=== PATIENT | female | born 1995 | race Caucasian/White ===

== ENCOUNTER 2018-12-24 21:55 | Emergency (ER) | payer BC, SELFPAY ==
--- OUTSIDE RECORDS SUMMARY | 2018-12-24 21:58 | XMS REPORT | Clinical Summary ---
:1995 Author Organization [facility] Address [address] [place] [address] Care Team Providers Name Role Phone Unavailable Primary Care Provider Unavailable Allergies No Known Allergies Medications Medication Sig Dispensed Refills Start Date End Date Status vitamin Take 1 tablet by 0 Active w/udifiex-gzgb-ghgrae mouth daily. ( PLUS) 27 mg iron- 1 mg Tab Active Problems Problem Noted Date Primigravida, antepartum 12/20/2017 Encounters Date Type Specialty Care Team Description 01/30/2018 Telephone Obstetrics and Franca Jeter RN Incoming Gynecology Call 01/18/2018 Routine Obstetrics and Jessica Pacheco [place]: 10w3d Richard Martins MD after 12/23/2017 Family History Medical History Relation Name Comments Hypertension Father Diabetes Paternal Grandfather Relation Name Status Comments Father Paternal Grandfather Social History Tobacco Use Types Packs/Day Years Used Date Never Smoker Smokeless Tobacco: Never Used Alcohol Use Drinks/Week oz/Week Comments No Sex Assigned at Date Recorded Not on file Job Start Date Occupation Industry Not on file Not on file Not on file Travel History Travel Start Travel End No recent travel history available. Last Filed Vital Signs Vital Sign Reading Time Taken Blood Pressure 122/70 01/18/2018 10:16 AM CDT Pulse - - Temperature - - Respiratory Rate - - Oxygen Saturation - - Inhaled Oxygen Concentration - - Weight 87.1 kg (192 lb) 01/18/2018 10:16 AM CDT Height - - Body Mass Index 34.01 01/18/2018 10:16 AM CDT Plan of Treatment Not on file Results Not on fileafter 12/23/2017 Insurance Payer Benefit Plan / Subscriber ID Type Phone Address Group BLUE CROSS/BLUE BCBS PPO POS EPO xxxxxxxxxxxx PPO [phone] [address] [place] [address]
--- OUTSIDE RECORDS SUMMARY | 2018-12-24 21:59 | XMS REPORT | Continuity of Care Document ---
:1995 Author Organization [facility] Care Team Providers Name Role Phone NOLOCAL, PRIMARY CARE DOC Primary Care Physician Unavailable Insurance Providers Payer Name Policy Number Subscriber Name Relationship [facility] [id number] MAVERICK KELLER Advance Directives Directive Response Recorded Date/Time Advance Directive? N 08/07/18 6:54pm Living Will? N 08/07/18 6:54pm Health Care Proxy? N 08/07/18 6:54pm Healthcare Power of Air Hammer Operator? N 08/07/18 6:54pm Is the patient an Organ Donor? N 08/07/18 6:54pm Chief Complaint and Reason for Visit Reason for Visit PASSING CLOTS S/P GIVING 08/04/NEAR SYNCOPE Problems Active Medical Problems Problem Onset Date Recorded Date Status Complicated urinary tract infection Unknown 07/08/16 Active Medications Current Home Medications Medication Dose Units Route Directions Days/Qty Instructions Start Date ACETAMINOPHEN 1-2 TAB By Mouth EVERY SIX HOURS 30 07/08/16 W/CODEINE #3 NEEDED as (TYLENOL/CODEINE #3 needed for PAIN TAB) 300 MG/30 MG TAB IBUPROFEN (MOTRIN 600 MG By Mouth EVERY EIGHT 20 07/08/16 600 MG TAB) 600 MG HOURS NEEDED TAB as needed for PAIN AND INFLAMMATION Ondansetron ODT 4 MG By Mouth EVERY SIX HOURS 12 07/08/16 (ZOFRAN 4 MG ODT) 4 NEEDED as MG TAB needed for NAUSEA SULFAMETHOXAZOLE 1 TAB By Mouth TWICE A DAY 10 Days 07/08/16 W/TRIMETHOPRI (0900; 2100) (SULFAMETHOXAZOLE/TM P DS 800 MG/160 MG TAB) 800 MG/160 MG TAB Social History Query Response Start Date Stop Date Smoking Status: Unknown Hospital Discharge Instructions No hospital discharge instructions. Plan of Care Discharge Date 08/07/18 Disposition HOME/SELF CARE Prescriptions See Medications Section Functional Status No functional status results. Allergies, Adverse Reactions, Alerts No known allergies. Immunizations No Known History of Immunizations. Vital Signs No Known Vital Signs Results. Results Laboratory Results Test Name Result Units Flags Reference Collection Result Comments Date/Time Date/Time White Blood 14.4 K/uL H 4.8-10.8 08/07/18 08/07/18 Count 7:13pm 7:37pm Red Blood 3.36 M/uL L 3.70-5.40 08/07/18 08/07/18 Count 7:13pm 7:37pm Hemoglobin 10.0 g/dL L 12.0-16.0 08/07/18 08/07/18 7:13pm 7:37pm Hematocrit 28.9 % L 37.0-47.0 08/07/18 08/07/18 7:13pm 7:37pm Mean 85.9 fl 80.0-100.0 08/07/18 08/07/18 Corpuscular 7:13pm 7:37pm Volume Mean 29.8 pg 27.0-31.0 08/07/18 08/07/18 Corpuscular 7:13pm 7:37pm Hemoglobin Mean 34.6 g/dL 32.0-36.0 08/07/18 08/07/18 Corpuscular 7:13pm 7:37pm Hgb Concent Diff Red Cell 15.6 % H 11.5-14.5 08/07/18 08/07/18 Distribution 7:13pm 7:37pm Width Platelet Count 296 K/uL 130-400 08/07/18 08/07/18 7:13pm 7:37pm Mean Platelet 8.1 fl 08/07/18 08/07/18 Volume 7:13pm 7:37pm Granulocytes 78.7 % H 50.0-75.0 08/07/18 08/07/18 (%) 7:13pm 7:37pm Lymphocytes % 12.8 % L 20.0-40.0 08/07/18 08/07/18 7:13pm 7:37pm Monocytes % 6.6 % 0.0-15.0 08/07/18 08/07/18 7:13pm 7:37pm Eosinophils % 1.7 % 0.0-10.0 08/07/18 08/07/18 7:13pm 7:37pm Basophils % 0.2 % 0.0-2.0 08/07/18 08/07/18 7:13pm 7:37pm Granulocytes # 11.3 K/uL H 1.8-6.4 08/07/18 08/07/18 7:13pm 7:37pm Lymphocytes # 1.8 K/uL 1.2-3.6 08/07/18 08/07/18 7:13pm 7:37pm Monocytes # 0.9 K/uL 0.3-0.9 08/07/18 08/07/18 7:13pm 7:37pm Eosinophils # 0.2 K/ul 0.0-0.5 08/07/18 08/07/18 7:13pm 7:37pm Basophils # 0.0 K/uL 0.0-0.2 08/07/18 08/07/18 7:13pm 7:37pm Manual NO 08/07/18 08/07/18 Differential 7:13pm 7:37pm Sodium Level 138 mmol/L 135-144 08/07/18 08/07/18 7:13pm 7:37pm Potassium 3.6 mmol/L 3.5-5.1 08/07/18 08/07/18 Level 7:13pm 7:37pm Chloride Level 108 mmol/L 101-111 08/07/18 08/07/18 7:13pm 7:37pm Carbon Dioxide 23 mmol/L 22-32 08/07/18 08/07/18 Level 7:13pm 7:37pm Anion Gap 10.6 mmol/L 10-20 08/07/18 08/07/18 7:13pm 7:37pm Glucose Level 118 mg/dL H 65-99 08/07/18 08/07/18 7:13pm 7:37pm Prediabetes 100 to 125 mg/dl Diabetes 126 mg/dl or higher Prediabetes refers to individuals with plasma glucose levels intermediate between those considered normal and those considered diabetic and is also referred to as impaired glucose tolerance (IGT) or impaired fasting glucose (IFG). Blood Urea 15 mg/dL 8-08/07/18 08/07/18 Nitrogen 7:13pm 7:44pm Creatinine 0.6 mg/dL 0.44-1.00 08/07/18 08/07/18 7:13pm 7:44pm EGFR Note 124.1 63.8-143.2 08/07/18 08/07/18 eGFR (Estimated Glomerular Filtration Rate) 7:13pm 7:44pm eGFR calculation value obtained using the [facility] Quadratic (MCQ) equation. The reportable reference range is recommended to be greater than 60 ml/min/1.73m. This is an estimation of the patient's GFR and clinical correlation is recommended. This eGFR calculation does not account for race. This result may differ from other equations available. Calcium Level 8.9 mg/dL 8.9-10.3 08/07/18 08/07/18 7:13pm 7:37pm Albumin 2.7 g/dL L 3.5-5.0 08/07/18 08/07/18 7:13pm 7:44pm Total 0.3 mg/dL 0.2-1.2 08/07/18 08/07/18 Bilirubin 7:13pm 7:44pm Alkaline 108 IU/L H 32-91 08/07/18 08/07/18 Phosphatase 7:13pm 7:44pm Total Protein 6.1 g/dL L 6.5-8.1 08/07/18 08/07/18 7:13pm 7:44pm Alanine 54 IU/L 7-55 08/07/18 08/07/18 Aminotransfera 7:13pm 7:44pm se (ALT/SGPT) Aspartate 49 IU/L H 15-41 08/07/18 08/07/18 Amino Transf 7:13pm 7:44pm (AST/SGOT) Globulin 3.4 g/dL 2.3-3.5 08/07/18 08/07/18 7:13pm 7:44pm Albumin/Globul 0.8 L 1.2-2.2 08/07/18 08/07/18 in Ratio 7:13pm 7:44pm Urine Color YELLOW YELLOW 06/07/18 06/07/18 10:00pm 10:16pm Urine CLEAR CLEAR 06/07/18 06/07/18 Appearance 10:00pm 10:16pm Urine Glucose NEGATIVE mg/dL NEGATIVE 06/07/18 06/07/18 10:00pm 10:16pm Urine NEGATIVE NEGATIVE 06/07/18 06/07/18 Bilirubin 10:00pm 10:16pm Urine Ketones NEGATIVE NEGATIVE 06/07/18 06/07/18 10:00pm 10:16pm Urine Specific 1.015 1.002-1.03 06/07/18 06/07/18 [place] 0 10:00pm 10:16pm Urine Blood NEGATIVE NEGATIVE 06/07/18 06/07/18 10:00pm 10:16pm Urine pH 6.5 4.5-8.0 06/07/18 06/07/18 10:00pm 10:16pm Urine Protein NEGATIVE mg/dL NEGATIVE 06/07/18 06/07/18 10:00pm 10:16pm Urine 0.2 E.U./dL 0.2 06/07/18 06/07/18 Urobilinogen 10:00pm 10:16pm Urine Nitrite NEGATIVE NEGATIVE 06/07/18 06/07/18 10:00pm 10:16pm Urine SMALL A NEGATIVE 06/07/18 06/07/18 Leukocyte 10:00pm 10:16pm Esterase Urine YES NO 06/07/18 06/07/18 Microscopic 10:00pm 10:16pm Indicated Urine RBC 0-2 /hpf 0-2 06/07/18 06/07/18 10:00pm 10:27pm Urine WBC 6-14 /hpf A 0-2 06/07/18 06/07/18 "Urine Culture 10:00pm 10:27pm test was reflexed and added to this specimen" Urine 6-14 /hpf A 0-2 06/07/18 06/07/18 Epithelial 10:00pm 10:27pm Cells Urine Bacteria 3+ /hpf A NEG 06/07/18 06/07/18 "Urine Culture 10:00pm 10:27pm test was reflexed and added to this specimen" Prothrombin 11.5 SECONDS 10.0-12.9 06/07/18 06/07/18 Time 7:30pm 8:06pm INR 1.0 0.91-1.15 06/07/18 06/07/18 International 7:30pm 8:06pm THE INR IS TO BE USED ONLY FOR MONITORING ORAL ANTICOAGULANT Normalized THERAPY. Ratio INDICATION INR VALUE 1. Prophylaxis of venous thrombosis 2.0-3.0 (high-risk surgery) Treatment of venous thrombosis Treatment of PE Prevention of systemic embolism Tissue heart valves AMI (to prevent systemic embolism) Valvular heart disease Atrial fibrillation Bileaflet mechanical valve in aortic position 2. Mechanical prosthetic heart valves (high risk) 2.5-3.5 Thrombosis and Antiphospholipid syndrome Prevention of recurrent DE Sixth ACCP Consensus Conference on Antithrombotic Therapy, Chest 2001; 119:Supplement 8-21. Activated 26.2 SECONDS 25.1-36.5 06/07/18 06/07/18 Partial 7:30pm 8:06pm Thromboplast Time D-Dimer 836 ng/mLFEU H 0-499 06/07/18 06/07/18 7:30pm 8:06pm The 100% NPV (Negative Predictive Value) for DVT/PE exclusion is <500 ng/mL FEU as suggested by the wood casket assembler and as approved by the FDA. Clinical correlation is needed. Creatine 33 IU/L L 38-234 06/07/18 06/07/18 Kinase 7:30pm 8:06pm Creatine 1.55 ng/ML 0.6-6.3 06/07/18 06/07/18 Kinase MB 7:30pm 8:06pm Troponin I < 0.01 ng/mL 0.00-0.03 06/07/18 06/07/18 7:30pm 8:06pm Troponin I-Interpretation Reference : <0.03 ng/mL NEGATIVE 0.04 - 0.49 ng/mL EQUIVOCAL =OR > 0.5 ng/mL CONSISTENT WITH ACUTE MYOCARDIAL INJURY 98% of confirmed AMI patients will have at least one value in a set or serial specimens >0.50 ng/ml. 99% of normals are between 0.0 - 0.10 ng/ml. Serial samples on a patient that are all <0.10 ng/ml effectively rules out AMI. Persistently increased troponin I values that are above the upper limit of normal but below the threshold for AMI indicate mycardial injury but not necessarily an ischemic mechanism of injury. Troponin Important Points 1. Troponin is specific for myocardial injury but not for AMI. Elevated troponin levels above the upper limit of normal but below the AMI cutoff may be present in cardiac injury other then AMI and represent some degree of risk. 2. Elevated troponin levels inconsistent with patient history or clinical condition should be considered a sign to investigate for other cardiac conditions. 3. Serial sampling is critical for accurate diagnosis. Myoglobin 9 ug/mL L 14.3-65.8 06/07/18 06/07/18 7:30pm 8:06pm Microbiology Results Procedure Source Result Collection Date/Time Result Date/Time Urine Culture Urine,Random Strep Agalactiae 06/07/18 10:27pm 06/12/18 6: 34am Group B Procedures Procedure Status Date Provider(s) CBCA W/PLT & AUTO DIFFERENTIAL Completed 06/07/18 IMMARAJ,PREMSWARUP COMPREHENSIVE METABOLIC PANEL Completed 06/07/18 IMMARAJ,PREMSWAR[facility] CARDIAC MARKERS PANEL (ER) Completed 06/07/18 IMMARAJ,PREMSWAR[facility] D- DIMER Completed 06/07/18 IMMARAJ,PREMSWAR[facility] ROUTINE URINALYSIS Completed 06/07/18 IMMARAJ,PREMSWAR[facility] PROTIME Completed 06/07/18 IMMARAJ,PREMSWARUP PTT Completed 06/07/18 IMMARAJ,PREMSWARUP URINE CULTURE Completed 06/07/18 IMMARAJ,PREMSWARUP CBCA W/PLT & AUTO DIFFERENTIAL Completed 08/07/18 [facility] COMPREHENSIVE METABOLIC PANEL Completed 08/07/18 ED[facility] LANG TYPE AND SCREEN Completed 08/07/18 ED[facility] LANG CHEST 1 VIEW (AP) Completed 06/07/18 IMMARAJ,PREMSWARUP Encounters Encounter Location Arrival/Admit Date Discharge/Depart Date Attending Provider Departed [place] 08/07/18 6:48pm 08/07/18 10:05pm BABITA GATES MD Emergency [facility] Departed [place] 06/07/18 7:13pm 06/07/18 10:22pm [facility]
--- OUTSIDE RECORDS SUMMARY | 2018-12-24 21:59 | XMS REPORT | Continuity of Care Document ---
:1995 Author Organization Interface Problems Problem Status Onset Classification Date Comments Source Date Reported Complicated Active Problem 08/08/2018 [place] urinary tract [facility] infection Medications Medication Details Route Status Patient Ordering Order Source Instructions Provider Date ACETAMINOPHEN EVERY SIX [facility] [place] W/CODEINE #3 HOURS 2015 [facility] (TYLENOL/CODEINE NEEDED as #3 TAB) 300 MG/30 needed for MG TAB PAIN IBUPROFEN (MOTRIN EVERY EIGHT [facility] [place] 600 MG TAB) 600 HOURS 2015 [facility] MG TAB NEEDED as needed for PAIN AND INFLAMMATION Ondansetron ODT EVERY SIX [facility] [place] (ZOFRAN 4 MG ODT) HOURS 2015 [facility] 4 MG TAB NEEDED as needed for NAUSEA SULFAMETHOXAZOLE TWICE A DAY [facility] [place] W/TRIMETHOPRI (0900; 2100) 2015 [facility] (SULFAMETHOXAZOLE /TMP DS 800 MG/160 MG TAB) 800 MG/160 MG TAB Allergies, Adverse Reactions, Alerts Substance Category Reaction Severity Reaction Status Date Comments Source type Reported Immunizations Immunization Date Given Site Status Last Comments Source Updated No vaccine completed [facility] Results Order Results Value Reference Date Interpretation Comments Source Name Range WBC # Bld Auto 14.4 4.8 - 10.8 2018 [facility] RBC # Bld Auto 3.36 3.70 - 5.40 2018 [facility] Hgb Bld-mCnc 10.0 12.0 - 16.0 2018 [facility] Hct VFr Bld 28.9 37.0 - 47.0 2018 [facility] MCV RBC 85.9 80.0 - 100.0 2018 [facility] MCH RBC Qn 29.8 27.0 - 31.0 Auto 2019 [facility] MCHC RBC 34.6 32.0 - 36.0 Auto-mCnc 2019 [facility] RDW RBC 15.6 11.5 - 14.5 Auto-Rto 2019 [facility] Platelet # Bld 296 130 - 400 Auto 2019 [facility] PMV Bld Auto 8.1 2018 [facility] Granulocytes/l 78.7 50.0 - 75.0 euk NFr Bld 2019 [facility] Auto Lymphocytes/le 12.8 20.0 - 40.0 uk NFr Bld 2019 [facility] Auto Monocytes/leuk 6.6 0.0 - 15.0 NFr Bld Auto 2019 [facility] Eosinophil/sahra 1.7 0.0 - 10.0 k NFr Bld Auto 2019 [facility] Basophils/leuk 0.2 0.0 - 2.0 NFr Bld 2019 [facility] Granulocytes # 11.3 1.8 - 6.4 Bld 2019 [facility] Lymphocytes # 1.8 1.2 - 3.6 Bld 2019 [facility] Monocytes # 0.9 0.3 - 0.9 Bld Auto 2019 [facility] Eosinophil # 0.2 0.0 - 0.5 Bld Auto 2019 [facility] Basophils # 0.0 0.0 - 0.2 Bld 2019 [facility] Manual NO Differential 2019 [facility] Sodium 138 135 - 144 SerPl-sCnc 2019 [facility] Potassium 3.6 3.5 - 5.1 SerPl-sCnc 2019 [facility] Chloride 108 101 - 111 SerPl-sCnc 2019 [facility] CO2 SerPl-sCnc 23 22 - 32 2018 [facility] Anion Gap 10.6 10 - 20 [place] SerPl-sCnc 2019 [facility] Glucose 118 65 - 99 SerPl-mCnc 2019 [facility] BUN SerPl-mCnc 15 8 - 26 2018 [facility] Creat 0.6 0.44 - 1.00 SerPl-mCnc 2019 [facility] GFR/BSA.pred 124.1 63.8 - 01/14/ [place] SerPl-ArVRat 143.2 2019 [facility] 8[facility]9 8.9 - [facility] 2.7 3.5 - [facility] Bilirub 0.3 0.2 - 1.2 [facility] ALP SerPl-cCnc 108 32 - 91 2019 [facility] Prot 6.1 6.5 - 8[facility] ALT SerPl-cCnc 54 7 - 55 2018 [facility] AST SerPl-cCnc 49 15 - 41 2018 [facility] Globulin Ser 3.4 2.3 - 3.5 [facility] Albumin/Glob 0.8 1.2 - 2.2 [facility] 2019 [facility] Urine Culture Organism: Strep 2018 [facility] Agalactiae Group B Color Ur YELLOW YELLOW 2018 [facility] Appearance Ur CLEAR CLEAR 2017 [facility] Glucose Ur NEGATIVE NEGATIVE Strip-nc 2018 [facility] Bilirub NEGATIVE NEGATIVE Ur-nc 2018 [facility] Ketones Ur NEGATIVE NEGATIVE Strip-nc 2018 [facility] Sp Gr Ur 1.015 1.002 - 1.030 2018 [facility] Blood Ur Ql NEGATIVE NEGATIVE Visual 2018 [facility] pH Ur Strip 6.5 4.5 - 8.0 2018 [facility] Prot Ur-mCnc NEGATIVE NEGATIVE 2017 [facility] Urobilinogen 0.2 0.2 Ur Strip-aCnc 2018 [facility] Nitrite Ur Ql NEGATIVE NEGATIVE Strip 2018 [facility] Leukocyte SMALL NEGATIVE esterase Ur Ql 2018 [facility] Strip Urine YES NO Microscopic 2018 [facility] Indicated RBC #/area 0-2 0 - 2 UrnS HPF 2018 [facility] WBC #/area 6-14 0 - 2 [place] UrnS HPF 2018 [facility] Epi Cells # Ur 6-14 0 - 2 [place] Manual 2018 [facility] Bacteria UrnS 3+ NEG [place] Ql Micro 2018 [facility] PT Bld 11.5 10.0 - 12.9 2017 [facility] INR PPP 1.0 0.91 - 1.15 2017 [facility] aPTT Bld 26.2 25.1 - 36.5 2017 [facility] D-Dimer 836 0 - 499 2017 [facility] CK SerPl-cCnc 33 38 - 234 2017 [facility] CK MB 1.55 0.6 - 6.3 [facility] 2017 [facility] Troponin I < 0.01 0.00 - 0.03 [facility] 2017 [facility] Myoglobin 9 14.3 - 65.8 [place] Bld[facility] 2017 [facility] Vital Signs Vital Sign Value Date Comments Source Encounters Location Location Encounter Encounter Reason Attending ADM DC Status Source Details Type Number For Provider Date Date Visit Departed [id number] [facility] 06/07 06/07 [facility] [facility] IMMARAJ /2017 e [facility] Departed [id number] BABITA GATES [facility]/07 [facility] Outpatient [id number] MALATHI 08/25 Active [facility] Moe Procedures Procedure Code Date Perfomer Comments Source CBCA W/PLT & AUTO 08/07/2018 [facility] COMPREHENSIVE 08/07/2018 [place] METABOLIC PANEL [facility] TYPE AND SCREEN 08/07/2018 [facility] CBCA W/PLT & AUTO 06/07/2018 [facility] COMPREHENSIVE 06/07/2018 [place] METABOLIC [facility] CARDIAC MARKERS 06/07/2018 [place] PANEL (ER) [facility] D- DIMER 06/07/2018 [facility] ROUTINE URINALYSIS 06/07/2018 [facility] PROTIME 06/07/2018 [facility] PTT 06/07/2018 [facility] URINE CULTURE 06/07/2018 [facility] CHEST 1 VIEW (AP) 06/07/2018 [facility]
--- OUTSIDE RECORDS SUMMARY | 2018-12-24 22:00 | XMS REPORT | Continuity of Care Document ---
:1995 Author Organization [facility] Care Team Providers Name Role Phone NOLOCAL, PRIMARY CARE DOC Primary Care Physician Unavailable Insurance Providers Payer Name Policy Number Subscriber Name Relationship [facility] [id number] MAVERICK KELLER Advance Directives Directive Response Recorded Date/Time Advance Directive? N 06/07/18 7:41pm Living Will? N 06/07/18 7:41pm Health Care Proxy? N 06/07/18 7:41pm Healthcare Power of Vest Finisher? N 06/07/18 7:41pm Is the patient an Organ Donor? N 06/07/18 7:41pm Chief Complaint and Reason for Visit Reason for Visit 30 WK OB CHEST PAIN/WEAK Problems Active Medical Problems Problem Onset Date [...] discharge instructions. Plan of Care Discharge Date 06/07/18 Disposition OTHER ACUTE CARE FACILITY Prescriptions See Medications Section Functional Status No functional status results. Allergies, Adverse Reactions, Alerts No known allergies. Immunizations No Known History of Immunizations. Vital Signs No Known Vital Signs Results. Results Laboratory Results Test Name Result Units Flags Reference Collection Result Comments Date/Time Date/Time Urine Color YELLOW YELLOW 06/07/18 06/07/18 10:00pm 10:16pm Urine CLEAR CLEAR 06/07/18 06/07/18 Appearance 10:00pm 10:16pm Urine Glucose NEGATIVE mg/dL NEGATIVE 06/07/18 06/07/18 10:00pm 10:16pm Urine NEGATIVE NEGATIVE 06/07/18 06/07/18 Bilirubin 10:00pm 10:16pm Urine Ketones NEGATIVE NEGATIVE 06/07/18 06/07/18 10:00pm 10:16pm Urine Specific 1.015 1.002-1.03 06/07/18 06/07/18 [place] 0 10:00pm 10:16pm Urine Blood NEGATIVE NEGATIVE [...] was reflexed and added to this specimen" White Blood 19.7 K/uL H 4.8-10.8 06/07/18 06/07/18 Count 7:30pm 7:52pm Red Blood 4.11 M/uL 3.70-5.40 06/07/18 06/07/18 Count 7:30pm 7:52pm Hemoglobin 12.0 g/dL 12.0-16.0 06/07/18 06/07/18 7:30pm 7:52pm Hematocrit 35.7 % L 37.0-47.0 06/07/18 06/07/18 7:30pm 7:52pm Mean 86.9 fl 80.0-100.0 06/07/18 06/07/18 Corpuscular 7:30pm 7:52pm Volume Mean 29.2 pg 27.0-31.0 06/07/18 06/07/18 Corpuscular 7:30pm 7:52pm Hemoglobin Mean 33.6 g/dL 32.0-36.0 06/07/18 06/07/18 Corpuscular 7:30pm 7:52pm Hgb Concent Diff Red Cell 14.1 % 11.5-14.5 06/07/18 06/07/18 Distribution 7:30pm 7:52pm Width Platelet Count 254 K/uL 130-400 06/07/18 06/07/18 7:30pm 7:52pm Mean Platelet 8.1 fl 7.4-10.4 06/07/18 06/07/18 Volume 7:30pm 7:52pm Granulocytes 81.3 % H 50.0-75.0 06/07/18 06/07/18 (%) 7:30pm 7:52pm Lymphocytes % 11.7 % L 20.0-40.0 06/07/18 06/07/18 7:30pm 7:52pm Monocytes % 6.3 % 0.0-15.0 06/07/18 06/07/18 7:30pm 7:52pm Eosinophils % 0.6 % 0.0-10.0 06/07/18 06/07/18 7:30pm 7:52pm Basophils % 0.1 % 0.0-2.0 06/07/18 06/07/18 7:30pm 7:52pm Granulocytes # 16.1 K/uL H 1.8-6.4 06/07/18 06/07/18 7:30pm 7:52pm Lymphocytes # 2.3 K/uL 1.2-3.6 06/07/18 06/07/18 7:30pm 7:52pm Monocytes # 1.2 K/uL H 0.3-0.9 06/07/18 06/07/18 7:30pm 7:52pm Eosinophils # 0.1 K/UL 0.0-0.5 06/07/18 06/07/18 7:30pm 7:52pm Basophils # 0.0 K/UL 0.0-0.2 06/07/18 06/07/18 7:30pm 7:52pm Manual NO 06/07/18 06/07/18 Differential 7:30pm 7:52pm Prothrombin 11.5 SECONDS 10.0-12.9 06/07/18 06/07/18 Time [...] Thrombosis and Antiphospholipid syndrome Prevention of recurrent PR Sixth ACCP Consensus Conference on Antithrombotic Therapy, Chest 2001; 119:Supplement 8-21. Activated 26.2 SECONDS 25.1-36.5 06/07/18 06/07/18 Partial 7:30pm 8:06pm Thromboplast Time D-Dimer 836 ng/mLFEU H 0-499 06/07/18 06/07/18 7:30pm 8:06pm The 100% NPV (Negative Predictive Value) for DVT/PE exclusion is <500 ng/mL FEU as suggested by the manager of quality and as approved by the FDA. Clinical correlation is needed. Sodium Level 134 mmol/L L 135-144 06/07/18 06/07/18 7:30pm 7:49pm Potassium 3.7 mmol/L 3.5-5.1 06/07/18 06/07/18 Level 7:30pm 7:49pm Chloride Level 103 mmol/L 101-111 06/07/18 06/07/18 7:30pm 7:49pm Carbon Dioxide 25 mmol/L 22-32 06/07/18 06/07/18 Level 7:30pm 7:49pm Anion Gap 9.7 mmol/L L 10-20 06/07/18 06/07/18 7:30pm 7:49pm Glucose Level 120 mg/dL H 65-99 06/07/18 06/07/18 7:30pm 7:49pm Prediabetes 100 to 125 mg/dl Diabetes 126 mg/dl or higher Prediabetes refers to individuals with plasma glucose levels intermediate between those considered normal and those considered diabetic and is also referred to as impaired glucose tolerance (IGT) or impaired fasting glucose (IFG). Blood Urea 17 mg/dL 8-06/07/18 06/07/18 Nitrogen 7:30pm 8:06pm Creatinine 0.4 mg/dL L 0.44-1.00 06/07/18 06/07/18 7:30pm 8:06pm Calcium Level 9.0 mg/dL 8.9-10.3 06/07/18 06/07/18 7:30pm 7:49pm Albumin 3.2 g/dL L 3.5-5.0 06/07/18 06/07/18 7:30pm 8:06pm Total 0.3 mg/dL 0.2-1.2 06/07/18 06/07/18 Bilirubin 7:30pm 8:06pm Alkaline 103 IU/L H 32-91 06/07/18 06/07/18 Phosphatase 7:30pm 8:06pm Total Protein 7.3 g/dL 6.5-8.1 06/07/18 06/07/18 7:30pm 8:06pm Alanine 20 IU/L 7-55 06/07/18 06/07/18 Aminotransfera 7:30pm 8:06pm se (ALT/SGPT) Aspartate 18 IU/L 15-41 06/07/18 06/07/18 Amino Transf 7:30pm 8:06pm (AST/SGOT) Globulin 4.1 g/dL H 2.3-3.5 06/07/18 06/07/18 7:30pm 8:06pm Albumin/Globul 0.8 L 1.2-2.2 06/07/18 06/07/18 in Ratio 7:30pm 8:06pm Creatine 33 IU/L L 38-234 06/07/18 06/07/18 [...] ug/mL L 14.3-65.8 06/07/18 06/07/18 7:30pm 8:06pm Procedures Procedure Status Date Provider(s) CBCA W/PLT & AUTO DIFFERENTIAL Completed 06/07/18 IMMARAJ,PREMSWARUP COMPREHENSIVE METABOLIC PANEL Completed 06/07/18 IMMARAJ,PREMSWARUP CARDIAC MARKERS PANEL (ER) Completed 06/07/18 IMMARAJ,PREMSWARUP D- DIMER Completed 06/07/18 IMMARAJ,PREMSWARUP ROUTINE URINALYSIS Completed 06/07/18 IMMARAJ,PREMSWARUP PROTIME Completed 06/07/18 IMMARAJ,PREMSWARUP PTT Completed 06/07/18 IMMARAJ,PREMSWARUP URINE CULTURE Active 06/07/18 IMMARAJ,PREMSWARUP CHEST 1 VIEW (AP) Completed 06/07/18 IMMARAJ,PREMSWARUP Encounters Encounter Location Arrival/Admit Date Discharge/Depart Date Attending Provider Departed [place] 06/07/18 7:13pm 06/07/18 10:22pm IMMARA, Emergency [facility]
--- OUTSIDE RECORDS SUMMARY | 2018-12-24 22:00 | XMS REPORT ---
:1995 [facility] Address [address] [place] [address] Care Team Providers Name Role Phone Unavailable Unavailable Unavailable Payers Payer Name Policy Type Policy Number Effective Date Expiration Date Problems This patient has no known problems. Allergies, Adverse Reactions, Alerts Allergy Allergy Status Severity Reaction(s) Onset Inactive Treating Comments Name Type Date Date Clinician No Known DA Active U 2018-07 Allergies -11 00:00:0 0 No Known DA Active U 2018-05 Allergies -14 00:00:0 0 Medications This patient has no known medications. Results Test Description Test Time Test Comments Text Results Atomic Results Result Comments COMPREHENSVE DRUG SCRN MODIFD 2018-10-12 11:05:00 Test Item Value Reference Range Comments PHENYTOIN SCREEN (test None Detected 10.0-20.0 code=PHENSQ) ug/mL : Therapeutic 6.0 - 14.0 Detection Limit=0.6 <0.6 Indicates None Detected ACETAMINOPHEN (test None Detected 10-30 code=ACETSQ) ug/mL Detection Limit=5 AMITRIPTYLINE (test None Detected Not Estab. This test was developed and its code=TAMARA) ng/mL performance characteristicsdetermined by [facility]. It has not been cleared orapproved by the Food and Drug Administration. DIAZEPAM (test None Detected 0.1-0.9 code=DIAZT) ug/mL Therapeutic: Chlordiazepoxide < 1.0 Norchlordiazepoxide < 0.7 Demoxepam < 0.6 Nordiazepam < 1.5 Diazepam < 1.0 Toxic: (Total, Parent+Met) > 5.0 NORDIAZEPAM (test None Detected 0.1-1.4 code=NORDIAZ) ug/mL DOXEPIN (test code=DOXT) None Detected Not Estab. ng/mL IMIPRAMINE (test None Detected Not Estab. code=IMIP) ng/mL DESIPRAMINE (test None Detected Not Estab. code=DESR) ng/mL NORTRIPTYLINE (test None Detected 50-150 code=NORT) ng/mL NORDOXEPIN (test None Detected Not Estab. Performed At: [facility] code=LEDA) ng/mL [id number] [place], [place] [id number] [place]kee[place] MD Ph:[phone] PENTOBARBITAL (NEMBUTAL) None Detected 1-5 (test code=PENTO) ug/mL Detection Limit=1 SALICYLATE (test None Detected 30-250 code=SALSQ) ug/mL Detection Limit=5This test was developed and its performance characteristicsdetermined by [employer]. It has not been cleared orapproved by the Food and Drug Administration. ISOPROPYL ALCOHOL BLOOD Negative % 0.000-0.010 (test code=ALCI) Detection Limit=0.010 METHYL ALCOHOL BLOOD Negative % 0.000-0.010 (test code=ALCM) Detection Limit=0.010 ALCOHOL ETHYL BLOOD Negative % 0.000-0.010 (test code=ALCETH) Detection Limit=0.010 BUTALBITAL (test None Detected 1-10 code=BUTALB) ug/mL Detection Limit=1 PHENOBARBITAL (test None Detected 15-40 code=PHENOB) ug/mL Detection Limit=1 CHLORDIAZEPOXIDE (test None Detected 0.1-0.9 code=CHLORD) ug/mL CHLORDIAZEPOXIDE COMMENT None Detected 0.1-0.6 (test code=CHLORCOM) ug/mL ACETONE QUANT (test Negative % 0.000-0.010 code=ACETN) Detection Limit=0.010 - CT ANGIO [id number] 00:21:00 Patient Name: BIBI KELLER Unit No: [id number] EXAMS: CPT CODE: [id number] CT [place] CHEST [address]221 Examination: CTA chest, PE protocol Indication: Rule out PE elevates definite Comparison: None Location: P16 Technique: Multiple contiguous axial 1.25 mm images were obtained through the lung after administration of IV contrast. Coronal and sagittal maximum intensity projection (MIPs) images were generated. One or more of the following dose reduction techniques were used: Automated exposure control, adjustment of the mA and/or kV according to patient size , and/or utilization of iterative reconstruction technique. Findings: Adequate contrast bolus. No evidence of acute pulmonary embolism down to the level of the proximal segmental pulmonary arteries. These findings were confirmed on MPR and MIP images. No underlying lung parenchymal abnormality. No pleural effusion of pleural thickening.There are no enlarged mediastinal, hilar , supraclavicular or axillary lymph nodes by CT criteria. Heart size is normal. There is no pericardial effusion or thickening. The aorta is normal in caliber. Although the evaluation of the aortic root is limited in the absence of gating, the remainder of the aorta remains unremarkable with the exception of aortic calcifications. Limited early arterial phase evaluation of the upper abdomen is unremarkable. No suspicious or destructive osseous lesions. Impression : No evidence of acute pulmonary embolism to the level of the proximal segmental pulmonary arteries [facility] NAME: BIBI KELLER [address] [place] [address] Blvd PHYS: Paulino Ruano MD [place], [place] [address] : 1995 AGE: 22 SEX: F LOC: RADHA PHONE #: [phone] EXAM DATE: STATUS: REG ER FAX #: [phone] RAD #: D/C DT PAGE 1 Signed Report (CONTINUED) Patient Name: BIBI KELLER Unit No: [id number] EXAMS: CPT CODE: [id number] CT ANGIO CHEST [address] <Continued> at 0021 Reported and signed by: Kim Armendariz M.D. CC: Paulino Perry MD Dictated Date/Time: 08/25/2018 (0021) Technologist: Leila Finley - Violeta CTDI: 10.59 DLP: 388.55 Trnscrpt: 08/25/2018 ( 0021) [email or web address] [facility] [place] NAME : [address] PHYS: [place] [address] : 1995 AGE: 22 SEX: F LOC: [facility] PHONE #: [phone] EXAM DATE: STATUS: REG ER FAX #: [phone] RAD #: D/ C DT PAGE 2 Signed Report Patient Name: BIBI KELLER Unit No: [id number] EXAMS: CPT CODE: [id number] CT ANGIO [id number] <Continued> Orig Print D/T: S: 08/25/2018 (0024) RD [place] NAME: KRISHNA [address] PHYS: [place] [address] : 1995 AGE : 22 SEX: F LOC: B.ERS PHONE #: [phone] EXAM DATE: 08/24/2018 STATUS: REG ER FAX #: [phone] RAD #: D/C DT PAGE3 Signed ReportURINALYSIS [id number] 00:15:00 Test Item Value Reference Range Comments UA COLOR (test code=COLU) YELLOW DESCRIPT YELLOW UA APPEARANCE (test code=APPU) CLEAR DESCRIPT CLEAR UA GLUCOSE DIPSTICK (test code=DGLUU) NEGATIVE (0) mg/dL (NEG) 0 UA BILIRUBIN DIPSTICK (test code=BILU) NEGATIVE (0) mg/dL (NEG) 0 UA KETONE DIPSTICK (test code=KETU) 0 (NEG) mg/dL (NEG) 0 UA SPECIFIC GRAVITY (test code=SGU) 1.017 SG 1.001-1.035 UA BLOOD DIPSTICK (test code=BART) 3+ mg/DL (NEG) 0 UA PH DIPSTICK (test code=SUHA) 5.0 pH UNITS 4.6-8.0 UA PROTEIN DIPSTICK (test code=PROU) NEGATIVE (0) mg/dL <30 (1+) UA UROBILINIOGEN DIPSTICK (test NORMAL (0) mg/Dl <2.0 (1+) code=URO) UA NITRITE DIPSTICK (test code=JESÚS) NEGATIVE (0) SCREEN NEG UA LEUKOCYTE ESTERASE DIPSTICK (test 75 (1+) Leuk/mcL (NEG) 0 code=LEUU) UA WBC (test code=WBCU) 10-20 #WBC/HPF 0-3 UA RBC (test code=RBCU) >100 #RBC/HPF 0-3 UA SQUAMOUS CELLS (test code=SQU) RARE >0 /HPF NONE-SQepi UA MUCUS (test code=MUCU) RARE /LPF NONE DRUGS OF ABUSE SCREEN [id number] 00:15:00 Test Item Value Reference Range Comments URN COCAINE (test NONE DETECTED <300 NG/ML code=COCAURN) (NEG) SCcutoff URN CANNABINOIDS (test NONE DETECTED <50 NG/ML code=CANNABURN) (NEG) SCcutoff URN AMPHETAMINE (test NONE DETECTED <1000 NG/ML code=AMPHETURN) (NEG) SCcutoff URN BARBITURATE (test NONE DETECTED <200 NG/ML code=BARBITURN) (NEG) SCcutoff URN BENZODIAZEPINE (test NONE DETECTED <200 NG/ML code=BENZOURN) (NEG) SCcutoff URN OPIATES (test NONE DETECTED <300 NG/ML code=OPIATURN) (NEG) SCcutoff URN PHENCYCLIDINE (PCP) NONE DETECTED <25 NG/ML ------ For all drug screen (test code=PHENCURN) (NEG) SCcutoff analytes ------The screen method provides only a preliminary analyticaltest result. A more specific alternate chemical method mustbe used in order to obtain a confirmed analytical result.Gas chromatography/mass spectrometry (GC/MS) is thepreferred confirmatory method. Other chemical confirmationmethods are available. Clinical consideration andprofessional judgement should be applied to any drug ofabuse test result, particularly when preliminary positiveresults are used. URINALYSIS [id number] 00:06:00 Test Item Value Reference Range Comments UA COLOR (test code=COLU) YELLOW DESCRIPT YELLOW UA APPEARANCE (test code=APPU) CLEAR DESCRIPT CLEAR UA GLUCOSE DIPSTICK (test code=DGLUU) NEGATIVE (0) mg/dL (NEG) 0 UA BILIRUBIN DIPSTICK (test code=BILU) NEGATIVE (0) mg/dL (NEG) 0 UA KETONE DIPSTICK (test code=KETU) 0 (NEG) mg/dL (NEG) 0 UA SPECIFIC GRAVITY (test code=SGU) 1.017 SG 1.001-1.035 UA BLOOD DIPSTICK (test code=BART) 3+ mg/DL (NEG) 0 UA PH DIPSTICK (test code=SUHA) 5.0 pH UNITS 4.6-8.0 UA PROTEIN DIPSTICK (test code=PROU) NEGATIVE (0) mg/dL <30 (1+) UA UROBILINIOGEN DIPSTICK (test NORMAL (0) mg/Dl <2.0 (1+) code=URO) UA NITRITE DIPSTICK (test code=JESÚS) NEGATIVE (0) SCREEN NEG UA LEUKOCYTE ESTERASE DIPSTICK (test 75 (1+) Leuk/mcL (NEG) 0 code=LEUU) UA WBC (test code=WBCU) 10-20 #WBC/HPF 0-3 UA RBC (test code=RBCU) >100 #RBC/HPF 0-3 UA SQUAMOUS CELLS (test code=SQU) RARE >0 /HPF NONE-SQepi UA MUCUS (test code=MUCU) RARE /LPF NONE DRUGS OF ABUSE SCREEN [id number] 00:06:00 Test Item Value Reference Range Comments URN COCAINE (test code=COCAURN) SCcutoff <300 NG/ML URN CANNABINOIDS (test code=CANNABURN) SCcutoff <50 NG/ML URN AMPHETAMINE (test code=AMPHETURN) SCcutoff <1000 NG/ML URN BARBITURATE (test code=BARBITURN) SCcutoff <200 NG/ML URN BENZODIAZEPINE (test code=BENZOURN) SCcutoff <200 NG/ML URN OPIATES (test code=OPIATURN) SCcutoff <300 NG/ML URN PHENCYCLIDINE (PCP) (test code=PHENCURN) SCcutoff <25 NG/ML [id number] 23:52:00 Test Item Value Reference Range Comments SALICYLATE (test code=FRIDA) < 1.7 MG/DL 2.8-20.0 THER RESULT <2.8 IS CONSIDERED NEGATIVE FOR SALICYLATE. HCG [id number] 23:51:00 Test Item Value Reference Range Comments HCG SERUM (test code=HCG) <1 mi-IU/ML 0-3 INTERPRET B-HCG LEVELS LESS THAN OR EQUAL TO 3 MIU/ML NEG [id number] 23:51:00 Test Item Value Reference Range Comments ACETAMINOPHEN (test code=ACET) <2.0 mcG/ML 10.0-30.0 [id number] 23:51:00 Test Item Value Reference Range Comments ALCOHOL (test code=ALC) < 3 MG/DL 0-10 MEDICAL ALCOHOL RESULTS. SITE WAS PREPPED WITH BETADINE. <10 MG/DL ARE CONSIDERED NEGATIVE. >400 MG/DL MAY BE FATAL.RESULTS FOR MEDICAL USE ONLY. NOT TO BE USED FOR FORENSIC PURPOSES. HCG [id number] 23:48:00 Test Item Value Reference Range Comments HCG SERUM (test code=HCG) mi-IU/ML 0-3 [id number] 23:48:00 Test Item Value Reference Range Comments ACETAMINOPHEN (test code=ACET) <2.0 mcG/ML 10.0-30.0 [id number] 23:48:00 Test Item Value Reference Range Comments ALCOHOL (test code=ALC) < 3 MG/DL 0-10 MEDICAL ALCOHOL RESULTS. SITE WAS PREPPED WITH BETADINE. <10 MG/DL ARE CONSIDERED NEGATIVE. >400 MG/DL MAY BE FATAL.RESULTS FOR MEDICAL USE ONLY. NOT TO BE USED FOR FORENSIC PURPOSES. COMPREHENSIVE METABOLIC [id number] 23:39:00 Test Item Value Reference Range Comments SODIUM (test code=NA) 141.0 mmol/L 133-144 POTASSIUM (test code=K) 3.8 mmol/L 3.5-5.1 CHLORIDE (test code=CL) 110 mmol/L 95-105 CARBON DIOXIDE (test 23 mmol/L 21-32 code=CO2) ANION GAP (test code=GAP) 8.0 GAP calc 4.0-15.0 GLUCOSE (test code=GLU) 105 MG/DL 70-110 BLOOD UREA NITROGEN (test 20 MG/DL 7-18 code=BUN) GLOMERULAR FILTRATION 82 estGFR >60 The estimated glomerular RATE (test code=GFR) filtration rate is computed usingpatient race, age, sex, and serum creatinine. If any of theneeded data elements are missing the Laboratory can notcompute an estimation of the glomerular filtration rate.The GFR value units=ml/min/1.73 meter squared. EstimatedGFR values above 60 should be interpreted as >60, not anexact number.--- DRUG DOSAGE ALERT --- Drug dosage adjustments utilize different calculationparameters. CREATININE (test 0.88 MG/DL 0.55-1.30 Results may be depressed code=CREAT) if patient is takingN-Acetylcysteine (NAC) and Metamizole (Dipyrone). TOTAL PROTEIN (test 7.5 G/DL 6.4-8.2 code=PROT) ALBUMIN (test code=ALB) 3.2 G/DL 3.4-5.0 ALBUMIN/GLOBULIN RATIO 0.7 RATIO 1.2-2.2 (test code=A/G) CALCIUM (test code=CA) 8.8 MG/DL 8.5-10.1 BILIRUBIN TOTAL (test 0.15 MG/DL 0.00-1.00 code=BILT) BILIRUBIN DIRECT (test < 0.10 MG/DL 0.00-0.30 code=BILD) BILIRUBIN INDIRECT (test CALC OLIVER MG/DL 0.2-1.3 code=BILIND) SGOT/AST (test code=AST) 11 Unit/L 15-37 SGPT/ALT (test code=ALT) 25 Unit/L 12-78 ALKALINE PHOSPHATASE 123 Unit/L 45-117 TOTAL (test code=ALKP) INDEX HEMOLYSIS (test 1 NORMAL <10 MG 1 NORMAL code=HEMINDEX) Index/DL INDEX ICTERIC (test 1 NORMAL <2 MG 1 NORMAL code=ICTINDEX) Index/DL INDEX LIPEMIA (test 1 NORMAL <50 MG 1 NORMAL code=LIPINDEX) Index/DL [id number] 23:39:00 Test Item Value Reference Range Comments TROPONIN-I (test < 0.015 NG/ML 0.000-0.045 An elevated troponin value alone is code=TROPI) not sufficient todiagnose a myocardial infarction. Rather, the patient'sclinical presentation (history, physical exam) and ECGshould be used in conjunction with troponin in thediagnostic evaluation of suspected myocardial infarction. Aserial sampling protocol is recommended to facilitate theidentification of temporal changes in troponin levelscharacteristic of [place]. COMPREHENSIVE METABOLIC [id number] 23:36:00 Test Item Value Reference Range Comments SODIUM (test code=NA) 141.0 mmol/L 133-144 POTASSIUM (test code=K) 3.8 mmol/L 3.5-5.1 CHLORIDE (test code=CL) 110 mmol/L 95-105 CARBON DIOXIDE (test code=CO2) 23 mmol/L 21-32 ANION GAP (test code=GAP) 8.0 GAP calc 4.0-15.0 GLUCOSE (test code=GLU) 105 MG/DL 70-110 BLOOD UREA NITROGEN (test code=BUN) 20 MG/DL 7-18 CREATININE (test code=CREAT) MG/DL 0.55-1.30 TOTAL PROTEIN (test code=PROT) G/DL 6.4-8.2 ALBUMIN (test code=ALB) 3.2 G/DL 3.4-5.0 ALBUMIN/GLOBULIN RATIO (test RATIO 1.2-2.2 code=A/G) CALCIUM (test code=CA) 8.8 MG/DL 8.5-10.1 BILIRUBIN TOTAL (test code=BILT) MG/DL 0.00-1.00 BILIRUBIN DIRECT (test code=BILD) MG/DL 0.00-0.30 BILIRUBIN INDIRECT (test MG/DL 0.2-1.3 code=BILIND) SGOT/AST (test code=AST) Unit/L 15-37 SGPT/ALT (test code=ALT) Unit/L 12-78 ALKALINE PHOSPHATASE TOTAL (test Unit/L 45-117 code=ALKP) INDEX HEMOLYSIS (test 1 NORMAL <10 MG Index/DL 1 NORMAL code=HEMINDEX) INDEX ICTERIC (test code=ICTINDEX) 1 NORMAL <2 MG Index/DL 1 NORMAL INDEX LIPEMIA (test code=LIPINDEX) 1 NORMAL <50 MG Index/DL 1 NORMAL [id number] 23:36:00 Test Item Value Reference Range Comments TROPONIN-I (test code=TROPI) NG/ML 0.000-0.045 - XR CHEST 1 [id number] 23:36:00 FAX: Paulino Mccartney MD [phone] [place]: E St: PRE Patient Name: BIBI KELLER Unit No: [id number] EXAMS: CPT CODE : [id number] XR CHEST 1 V 92420 AFTER HOURS SERVICE ON: 08/24/2018 11:34 PM AP Portable Chest Location Code M12 HISTORY: chestpain r/o pneumothorax FINDINGS: There are no infiltrates. There are no pleural effusions. There is no pneumothorax. Cardiac silhouette and mediastinum appear within normal limits. IMPRESSION: No active intrathoracic findings. at 2336 Reported and signed by: Ximena Vick M.D. CC: Paulino Perry MD Dictated Date/Time: 08/24/2018 (9649)Technologist: Sveta Butler - Agency; [facility] Transcribed Date/Time: 08/24/2018 (8976) By: [email or web address] Orig Print D/T: S: 08/24/2018 (2860) [facility] [place] NAME: BIBI KELLER [address] [place] [address] PHYS: Paulino Ruano MD, [place] [address] : 1995 AGE: 22 SEX: F LOC: [place].ERSPHONE #: [phone] EXAM DATE: 08/24/2018 STATUS: PRE ER FAX #: [phone] RAD NO: DC Dt: PAGE 1 Signed [id number] 23:25:00 Test Item Value Reference Range Comments D-DIMER (test 598 FEUng/mL 0-500 THE CUT-OFF VALUE FOR EXCLUSION code=DDIMER) OF FTW=484 FEU ng/mLNOTE: This method must be used with additional tests in theevaluation of VTE and should not be used to exclude VTE withpretest probability alone. CBC W/AUTO [id number] 23:16:00 Test Item Value Reference Range Comments WHITE BLOOD CELL (test code=WBC) 12.3 K/mm3 4.1-12.1 RED BLOOD CELL (test code=RBC) 4.09 M/mm3 3.8-5.5 HEMOGLOBIN (test code=HGB) 11.5 G/DL 10.6-15.8 HEMATOCRIT (test code=HCT) 37.3 % 31.8-47.4 MEAN CELL VOLUME (test code=MCV) 91.2 fL 80.1-101.1 MEAN CELL HGB (test code=MCH) 28.1 pg 25.3-35.3 MEAN CELL HGB CONCETRATION (test code=MCHC) 30.8 G/DL 32.7-35.1 RED CELL DISTRIBUTION WIDTH (test code=RDW) 14.8 % 12.2-16.4 RED CELL DISTRIBUTION WIDTH (test code=RDW-SD) 49.3 fL 36.4-46.3 PLATELET COUNT (test code=PLT) 394 K/mm3 155-337 MEAN PLATELET VOLUME (test code=MPV) 9.8 fL 6.8-11.2 GRANULOCYTE % (test code=GR%) 62.7 % 37.8-82.6 IMMATURE GRANULOCYTE % (test code=IG%) 0.9 % 0.0-2.0 LYMPHOCYTE % (test code=LY%) 27.3 % 14.1-45.4 MONOCYTE % (test code=MO%) 7.0 % 2.5-11.7 EOSINOPHIL % (test code=EO%) 1.7 % 0.0-6.2 BASOPHIL % (test code=BA%) 0.4 % 0.0-2.1 NUCLEATED RBC % (test code=NRBC%) 0.0 /100WBC% 0.0-1.0 GRANULOCYTE # (test code=GR#) 7.68 k/mm3 2.0-13.7 IMMATURE GRANULOCYTE # (test code=IG#) 0.11 K/mm3 0.00-0.03 LYMPHOCYTE # (test code=LY#) 3.35 K/mm3 0.6-3.8 MONOCYTE # (test code=MO#) 0.86 K/mm3 0.11-0.59 EOSINOPHIL # (test code=EO#) 0.21 K/mm3 0.0-0.4 BASOPHIL # (test code=BA#) 0.05 K/mm3 0.0-0.1 NUCLEATED RBC # (test code=NRBC#) 0.00 K/mm3 0.0-0.05 [id number] 14:30:00 Test Item Value Reference Range Comments PHENYLKETONURIA (test SEE RPT SCREEN STATE RPT RESULT NORMAL-RANGE code=PKU) TEST/CONDITION ( SCREENING)------ -----N NORMAL Amino Acid DisordersN NORMAL Fatty Acid DisordersN NORMAL Organic Acid DisordersN NORMAL GalactosemiaN NORMAL Biotinidase DeficiencyN NORMAL Endocrine Disorders (Hypothyroid)N NORMAL CAH (Congenital Adrenal Hyperplasia)N NORMAL HemoglobinopathiesN NORMAL Cystic FibrosisN NORMAL SCID N/NORM=Normal ABN=Abnormal-does not compare with expected result UNSAT=Unsatisfactory * Any unsatisfactory test result indicates a need for repeat testing. Note:Transfusion may alter NBS results. See [facility] Report for detailed ABN or UNSAT results.--- [facility] Screening (NBS) Result Reporting ---The screen identifies newborns at increased risk forspecified disorders. The reference value for all screeneddisorders is Normal . Analyte results are only listed forabnormal disorder screening results. The recommendedcollection time period and the testing methodologies havebeen designed to minimize the number of false negative andfalse positive results in newborns and young infants. Whenthe screen specimen is collected before 24 hours ofage or on older children, the test may not identify some ofthese conditions. If there is a clinical concern, diagnostictesting should be initiated. Specimens that are unacceptablefor testing are reported as Unsatisfactory. Is this a LINE draw? NIs BABY'S MEDREC# on the CARD? YESAcknowledge, Was parent given NBS Specimen Retention Disclosure? YES
--- OUTSIDE RECORDS SUMMARY | 2018-12-24 22:01 | XMS REPORT | Continuity of Care Document ---
:1995 Author Organization [facility] Care Team Providers Name Role Phone SILVIO CAZARES Primary Care Physician Unavailable Insurance Providers Payer Name Policy Number Subscriber Name Relationship [facility] [id number] MAVERICK KELLER Advance Directives Directive Response Recorded Date/Time Advance Directive? N 11/27/18 7:19pm Living Will? N 11/27/18 7:19pm Health Care Proxy? N 11/27/18 7:19pm Healthcare Power of Server Service Assistant? N 11/27/18 7:19pm Is the patient an Organ Donor? N 11/27/18 7:19pm Chief Complaint and Reason for Visit Reason for Visit CHEST PAIN/LEFT ARM NUMBNESS Problems Active Medical Problems Problem Onset Date [...] discharge instructions. Plan of Care Discharge Date 11/27/18 Disposition HOME/SELF CARE Prescriptions See Medications Section Functional Status No functional status results. Allergies, Adverse Reactions, Alerts No known allergies. Immunizations No Known History of Immunizations. Vital Signs No Known Vital Signs Results. Results Laboratory Results Test Name Result Units Flags Reference Collection Result Comments Date/Time Date/Time Urine NEGATIVE NEGATIVE 11/27/18 11/27/18 Cannabinoids 8:21pm 8:48pm Screen Phencyclidine NEGATIVE NEGATIVE 11/27/18 11/27/18 (PCP) Screen 8:21pm 8:48pm Cocaine Screen NEGATIVE NEGATIVE 11/27/18 11/27/18 8:21pm 8:48pm Urine NEGATIVE NEGATIVE 11/27/18 11/27/18 Methamphetamines 8:21pm 8:48pm Screen Opiates Screen NEGATIVE NEGATIVE 11/27/18 11/27/18 8:21pm 8:48pm Urine NEGATIVE NEGATIVE 11/27/18 11/27/18 Amphetamines 8:21pm 8:48pm Screen Benzodiazepines NEGATIVE NEGATIVE 11/27/18 11/27/18 Screen 8:21pm 8:48pm Tricyclic NEGATIVE NEGATIVE 11/27/18 11/27/18 Antidepressants 8:21pm 8:48pm Screen Methadone Screen NEGATIVE NEGATIVE 11/27/18 11/27/18 8:21pm 8:48pm Urine NEGATIVE NEGATIVE 11/27/18 11/27/18 Barbiturates 8:21pm 8:48pm Screen Oxycodone Screen NEGATIVE NEGATIVE 11/27/18 11/27/18 8:21pm 8:48pm Propoxyphene NEGATIVE NEGATIVE 11/27/18 11/27/18 Screen 8:21pm 8:48pm Urine NEGATIVE NEGATIVE 11/27/18 11/27/18 Buprenorphine 8:21pm 8:48pm CUT OFF CONCENTRATIONS: Screen AMPHETAMINE 500 ng/ml BARBITURATES 200 ng/ml BENZODIAZEPINES 150 ng/ml BUPRENORPHINE 10 ng/ml COCAINE 150 ng/ml METHAMPHETAMINE 500 ng/ml METHADONE 200 ng/ml OPIATES 100 ng/ml OXYCODONE 100 ng/ml PHENCYCLIDINE 25 ng/ml PROPOXYPHENE 300 ng/ml CANNIBINOIDS 50 ng/ml TRICYCLIC ANTIDEPRESSANTS 300 ng/ml ATTENTION: It is important to remember that the [employer]ottay[employer]X device, like other instant drug testing immunoassays are screening tests and they give a preliminary result. A presumptive positive result(s) should be explored for possible alternative explanations- i.e. known related/unrelated cross reactive compounds, etc. Alternative, more specific methods like GC/MS OR LC/MS should be utilized to obtain a definitive confirmed quantitative result. A presumptive positive result for any drug does not indicate the level of intoxication, administration route or concentration of that drug in the urine specimen. A negative result may not necessarily indicate drug-free urine. Negative results can be obtained when drug is present but below the cut-off level of the test. Urine Color STRAW YELLOW 11/27/18 11/27/18 8:21pm 8:42pm Urine Appearance CLEAR CLEAR 11/27/18 11/27/18 8:21pm 8:42pm Urine Glucose NEGATIVE mg/dL NEGATIVE 11/27/18 11/27/18 8:21pm 8:42pm Urine Bilirubin NEGATIVE NEGATIVE 11/27/18 11/27/18 8:21pm 8:42pm Urine Ketones NEGATIVE NEGATIVE 11/27/18 11/27/18 8:21pm 8:42pm Urine Specific <=1.005 1.002-1.03 11/27/18 11/27/18 [place] 0 8:21pm 8:42pm Urine Blood TRACE A NEGATIVE 11/27/18 11/27/18 8:21pm 8:42pm Urine pH 6.0 4.5-8.0 11/27/18 11/27/18 8:21pm 8:42pm Urine Protein NEGATIVE mg/dL NEGATIVE 11/27/18 11/27/18 8:21pm 8:42pm Urine 0.2 E.U./d 0.2 11/27/18 11/27/18 Urobilinogen L 8:21pm 8:42pm Urine Nitrite NEGATIVE NEGATIVE 11/27/18 11/27/18 8:21pm 8:42pm Urine Leukocyte TRACE A NEGATIVE 11/27/18 11/27/18 Esterase 8:21pm 8:42pm Urine Microscopic YES NO 11/27/18 11/27/18 Indicated 8:21pm 8:42pm Urine RBC 3-5 /hpf A 0-2 11/27/18 11/27/18 8:21pm 8:45pm Urine WBC 3-5 /hpf A 0-2 11/27/18 11/27/18 8:21pm 8:45pm Urine Epithelial 6-14 /hpf A 0-2 11/27/18 11/27/18 Cells 8:21pm 8:45pm Urine Bacteria FEW /hpf NEG 11/27/18 11/27/18 8:21pm 8:45pm White Blood Count 10.4 K/uL 4.8-10.8 11/27/18 11/27/18 7:25pm 7:44pm Red Blood Count 4.94 M/uL 3.70-5.40 11/27/18 11/27/18 7:25pm 7:44pm Hemoglobin 12.9 g/dL 12.0-16.0 11/27/18 11/27/18 7:25pm 7:44pm Hematocrit 39.0 % 37.0-47.0 11/27/18 11/27/18 7:25pm 7:44pm Mean Corpuscular 78.9 fl L 80.0-100.0 11/27/18 11/27/18 Volume 7:25pm 7:44pm Mean Corpuscular 26.1 pg L 27.0-31.0 11/27/18 11/27/18 Hemoglobin 7:25pm 7:44pm Mean Corpuscular 33.1 g/dL 32.0-36.0 11/27/18 11/27/18 Hgb Concent Diff 7:25pm 7:44pm Red Cell 16.5 % H 11.5-14.5 11/27/18 11/27/18 Distribution 7:25pm 7:44pm Width Platelet Count 313 K/uL 130-400 11/27/18 11/27/18 7:25pm 7:44pm Mean Platelet 8.1 fl 11/27/18 11/27/18 Volume 7:25pm 7:44pm Granulocytes (%) 67.3 % 50.0-75.0 11/27/18 11/27/18 7:25pm 7:44pm Lymphocytes % 25.7 % 20.0-40.0 11/27/18 11/27/18 7:25pm 7:44pm Monocytes % 4.9 % 0.0-15.0 11/27/18 11/27/18 7:25pm 7:44pm Eosinophils % 1.8 % 0.0-10.0 11/27/18 11/27/18 7:25pm 7:44pm Basophils % 0.3 % 0.0-2.0 11/27/18 11/27/18 7:25pm 7:44pm Granulocytes # 7.0 K/uL H 1.8-6.4 11/27/18 11/27/18 7:25pm 7:44pm Lymphocytes # 2.7 K/uL 1.2-3.6 11/27/18 11/27/18 7:25pm 7:44pm Monocytes # 0.5 K/uL 0.3-0.9 11/27/18 11/27/18 7:25pm 7:44pm Eosinophils # 0.2 K/ul 0.0-0.5 11/27/18 11/27/18 7:25pm 7:44pm Basophils # 0.0 K/uL 0.0-0.2 11/27/18 11/27/18 7:25pm 7:44pm Manual NO 11/27/18 11/27/18 Differential 7:25pm 7:44pm D-Dimer 575 ng/mLF H 0-499 11/27/18 11/27/18 EU 7:25pm 8:31pm The 100% NPV (Negative Predictive Value) for DVT/PE exclusion is <500 ng/mL FEU as suggested by the rand tacker and as approved by the FDA. Clinical correlation is needed. Sodium Level 139 mmol/L 135-144 11/27/18 11/27/18 7:25pm 7:43pm Potassium Level 3.4 mmol/L L 3.5-5.1 11/27/18 11/27/18 7:25pm 7:43pm Chloride Level 104 mmol/L 101-111 11/27/18 11/27/18 7:25pm 7:43pm Carbon Dioxide 23 mmol/L 22-32 11/27/18 11/27/18 Level 7:25pm 7:43pm Anion Gap 15.4 mmol/L 10-20 11/27/18 11/27/18 7:25pm 7:43pm Glucose Level 125 mg/dL H 65-99 11/27/18 11/27/18 7:25pm 7:43pm Prediabetes 100 to 125 mg/dl Diabetes 126 mg/dl or higher Prediabetes refers to individuals with plasma glucose levels intermediate between those considered normal and those considered diabetic and is also referred to as impaired glucose tolerance (IGT) or impaired fasting glucose (IFG). Blood Urea 15 mg/dL 8-11/27/18 11/27/18 Nitrogen 7:25pm 7:50pm Creatinine 0.7 mg/dL 0.44-1.00 11/27/18 11/27/18 7:25pm 7:50pm EGFR Note 123.8 63.8-143.2 11/27/18 11/27/18 eGFR (Estimated Glomerular Filtration Rate) 7:25pm 7:50pm eGFR calculation value obtained using the [facility] Quadratic (MCQ) equation. The reportable reference range is recommended to be greater than 60 ml/min/1.73m. This is an estimation of the patient's GFR and clinical correlation is recommended. This eGFR calculation does not account for race. This result may differ from other equations available. Calcium Level 9.2 mg/dL 8.9-10.3 11/27/18 11/27/18 7:25pm 7:43pm Albumin 3.8 g/dL 3.5-5.0 11/27/18 11/27/18 7:25pm 7:50pm Total Bilirubin 0.3 mg/dL 0.2-1.2 11/27/18 11/27/18 7:25pm 7:50pm Alkaline 76 IU/L 32-91 11/27/18 11/27/18 Phosphatase 7:25pm 7:50pm Total Protein 8.2 g/dL H 6.5-8.1 11/27/18 11/27/18 7:25pm 7:50pm Alanine 19 IU/L 7-55 11/27/18 11/27/18 Aminotransferase 7:25pm 7:50pm (ALT/SGPT) Aspartate Amino 22 IU/L 15-41 11/27/18 11/27/18 Transf (AST/SGOT) 7:25pm 7:50pm Globulin 4.4 g/dL H 2.3-3.5 11/27/18 11/27/18 7:25pm 7:50pm Albumin/Globulin 0.9 L 1.2-2.2 11/27/18 11/27/18 Ratio 7:25pm 7:50pm Creatine Kinase 44 IU/L 38-234 11/27/18 11/27/18 7:25pm 7:50pm Creatine Kinase 0.52 ng/ML L 0.6-6.3 11/27/18 11/27/18 MB 7:25pm 7:59pm Troponin I < 0.01 ng/mL 0.00-0.03 11/27/18 11/27/18 7:25pm 7:54pm Troponin I-Interpretation Reference : <0.03 ng/mL NEGATIVE [...] sampling is critical for accurate diagnosis. Myoglobin 11 ug/mL L 14.3-65.8 11/27/18 11/27/18 7:25pm 7:58pm Thyroid 0.68 uIU/mL 0.34-5.6 11/27/18 11/27/18 Stimulating 7:25pm 8:46pm Hormone (TSH) Procedures Procedure Status Date Provider(s) CBCA W/PLT & AUTO DIFFERENTIAL Completed 11/27/18 BABITA GATES MD COMPREHENSIVE METABOLIC PANEL Completed 11/27/18 BABITA GATES MD CARDIAC MARKERS PANEL (ER) Completed 11/27/18 BABITA GATES MD D- DIMER Completed 11/27/18 BABITA GATES MD URINE DRUG Completed 11/27/18 BABITA GATES MD THYROID STIMULATING HORMONE Completed 11/27/18 BABITA GATES MD ROUTINE URINALYSIS Completed 11/27/18 BABITA GATES MD CHEST 1 VIEW (AP) Completed 11/27/[address] ANGIOGRAM CHEST Active 11/27/18 BABITA GATES MD Encounters Encounter Location Arrival/Admit Date Discharge/Depart Date Attending Provider Departed [place] 11/27/18 7:07pm 11/27/18 10:23pm BABITA GATES [facility]
[2018-12-24 23:34] LABS: Barbiturates NEGATIVE (NEGATIVE); Benzodiazepines NEGATIVE (NEGATIVE); Cocaine NEGATIVE (NEGATIVE); METHAMPHETAM NEGATIVE (NEGATIVE); Methadone NEGATIVE (NEGATIVE); Opiates NEGATIVE (NEGATIVE); Phencyclidine NEGATIVE (NEGATIVE); THC Cannibis NEGATIVE (NEGATIVE)
[2018-12-24] MEDS ORDERED: LORazepam 2 MG/ML VIAL ONE (23:44)
[2018-12-24] MEDS ORDERED: NA CHLORIDE 0.9% 500 ML ONE (23:44)
[2018-12-24 23:55] LABS: Absolute Lymphocytes (CBC) 2.3 K/uL (0.7-4.9); Absolute Monocytes 1.1 K/uL (0.1-1.3); Absolute Neutrophil 8.7 K/uL (1.8-8.0); Basophils % 0.3 % (0-1.3); Eosinophils % 2.3 % (0-4.4); Hematocrit 40.7 % (36.0-45.0); Lymphocytes % 18.5 % (15.3-44.8); MPV 8.2 fL (7.6-11.3); RBC Red Blood Cell Count 5.16 M/uL (3.86-4.86)
[2018-12-24 23:59] LABS: Urine Appearance CLEAR; Urine Bilirubin NEGATIVE (NEG); Urine Blood 3+ (NEG); Urine Color YELLOW; Urine Glucose NEGATIVE (NEG); Urine Protein NEGATIVE (NEG); Urine Specific Gravity <=1.005 (1.005-1.030); Urine Urobilinogen 0.2 mg/dL (0.2-1.0); Urine pH 6.5 (5.0-7.0)
[2018-12-25 00:05] LABS: BUN Blood Urea Nitrogen 17 mg/dL (7-18); Bicarbonate 22 mmol/L (21-32); Glucose Level 85 mg/dL (74-106); Potassium 3.9 mmol/L (3.5-5.1); Sodium Level 140 mmol/L (136-145)
[2018-12-25 00:14] LABS: Urine Microscopic Reflex ORDER UMIC
[2018-12-25 00:46] LABS: Urine Blood 3+ (NEG); Urine Glucose NEGATIVE (NEG); Urine Protein NEGATIVE (NEG)
--- NOTE | 2018-12-25 00:54 | ER ---
Nurse's Notes [facility] Name: Nicholas Leung Age: 23 yrs Sex: Female : 1995 Arrival Date: 12/24/2018 Time: 21:59 Bed 28 Private MD: Diagnosis: Anxiety disorder Presentation: 12/24 22:07 Presenting complaint: Patient states: anxiety, dizziness since July after delivery ak1 of baby. pt seen in [place] placed on medication for depression. started increased dose of Wellbutrin on Tuesday. pt PCP [facility] and pt visiting. Transition of care: patient was not received from another setting of care. Onset of symptoms is unknown. Risk Assessment: Do you want to hurt yourself or someone else? Patient reports no desire to harm self or others. Initial Sepsis Screen: Does the patient meet any 2 criteria? No. Patient's initial sepsis screen is negative. Does the patient have a suspected source of infection? No. Patient's initial sepsis screen is negative. Care prior to arrival: None. 22:07 Acuity: ARMIDA 3 ak1 22:07 Method Of Arrival: Ambulatory ak1 Triage Assessment: 22:06 General: Appears in no apparent distress. Behavior is cooperative, appropriate for age. ak1 Neuro: Level of Consciousness is awake, alert, obeys commands, Oriented to person, place, time, situation, World Travel Counselor are equal bilaterally Moves all extremities. Gait is steady, Speech is normal, Facial symmetry appears normal. 22:07 Pain: Pain. ak1 12/25 00:02 Headache History: Denies prior headaches. Pain: Pain began gradually, Also complains of rv no other associated symptoms. 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 - Social history:: Smoking status: Patient/guardian denies using tobacco. - Ebola Screening: : No symptoms or risks identified at this time. Screenin/03 00:02 Abuse screen: Denies threats or abuse. Denies injuries from another. Nutritional rv screening: No deficits noted. Tuberculosis screening: No symptoms or risk factors identified. Fall Risk None identified. Assessment: 00:01 General: Appears in no apparent distress. comfortable, Behavior is calm, cooperative. rv Pain: Denies pain. Neuro: Level of Consciousness is awake, alert, obeys commands, Oriented to person, place, time, situation. Cardiovascular: Patient's skin is warm and dry. Respiratory: Airway is patent. GI: No signs and/or symptoms were reported involving the gastrointestinal system. : No signs and/or symptoms were reported regarding the genitourinary system. EENT: No signs and/or symptoms were reported regarding the EENT system. Derm: Skin is intact. Musculoskeletal: No signs and/or symptoms reported regarding the musculoskeletal system. Vital Signs: 12/24 22:05 BP 134 / 94; Pulse 89; Resp 16; Temp 98.2; Pulse Ox 100% on R/A; Weight 99.79 kg (R); ak1 Height 5 ft. 2 in. (157.48 cm) (R); Pain 6/10; 12/25 00:00 BP 104 / 74; Pulse 83; Resp 18; Pulse Ox 100% ; rv 00:30 BP 101 / 78; Pulse 85; Resp 16; Pulse Ox 97% ; rv 01:00 BP 90 / 55; Pulse 85; Resp 18; Temp 98; Pulse Ox 96% ; rv 06 22:05 Body Mass Index 40.24 (99.79 kg, 157.48 cm) ak1 12/24 22:05 pt reports headache. ak1 ED Course: 21:59 Patient arrived in ED. es 22:07 Arm band placed on Patient placed in an exam room, on a stretcher, on pulse oximetry, ak1 Patient notified of wait time. 22:09 Masoud Corrigan, MARIN is Primary Nurse. rv 22:10 Triage completed. ak1 22:32 Jimmy Saxena MD is Attending Physician. pkl 23:38 XRAY CXR (1 view) In Process Unspecified. EDMS 12/25 00:00 Inserted saline lock: 22 gauge in right forearm, using aseptic technique. Blood rv collected. 00:02 Patient has correct armband on for positive identification. Bed in low position. Call rv light in reach. Side rails up X 1. Adult w/ patient. Pulse ox on. NIBP on. 01:06 No provider procedures requiring assistance completed. IV discontinued, intact, rv bleeding controlled, No redness/swelling at site. Pressure dressing applied. Administered Medications: 12/24 23:33 Not Given (Patient Refused): NS 0.9% 1000 ml IV at 125 ml/hr continuous ca1 23:33 Not Given (Patient Refused): Ativan 1 mg IVP once ca1 12/25 00:10 Drug: Ativan 1 mg Route: IVP; Site: right forearm; rv 01:07 Follow up: Response: No adverse reaction rv 00:10 Drug: NS 0.9% 1000 ml Route: IV; Rate: 125 ml/hr; Site: right forearm; rv 01:07 Follow up: IV Status: Completed infusion rv 00:32 CANCELLED (error): NS 0.45 % 1000 ml IV at 125 ml/hr continuous rv Outcome: 00:53 Discharge ordered by . izabela 01:06 Discharged to home ambulatory. rv 01:06 Condition: good 01:06 Discharge instructions given to patient, Instructed on discharge instructions, follow up and referral plans. medication usage, Demonstrated understanding of instructions, follow-up care, medications, Prescriptions given X 1. 01:07 Patient left the ED. rv Signatures: Dispatcher [employer] Jimmy Bonilla MD MD pkAmna Emery Amber RN RN ak1 Masoud Corrigan RN RN rv Lynn Chambers RN ca1
--- NOTE | 2018-12-25 00:54 | EDPHYS ---
Physician Documentation [facility] Name: Nicholas Leung Age: 23 yrs Sex: Female : 1995 Arrival Date: 12/24/2018 Time: 21:59 Bed 28 Private MD: ED Physician Jimmy Saxena HPI: 12/24 23:12 This 23 yrs old Female presents to ER via Ambulatory with complaints of pkl Numbness Of Arm, Anxiety, Headache, Tingling of arms and hands, Cough. 23:12 The patient has shortness of breath at rest. Onset: The symptoms/episode began/occurred pkl 5 month(s) ago. Associated signs and symptoms: Pertinent positives: dizziness, numbness in extremities, anxiety spells. Patient has H/O post depression since 2018. 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 - Social history:: Smoking status: Patient/guardian denies using tobacco. - Ebola Screening: : No symptoms or risks identified at this time. ROS: 23:12 Eyes: Negative for injury, pain, redness, and discharge, ENT: Negative for injury, pkl pain, and discharge, Neck: Negative for injury, pain, and swelling, Cardiovascular: Negative for chest pain, palpitations, and edema. 23:12 Respiratory: Positive for shortness of breath. 23:12 Abdomen/GI: Negative for abdominal pain, nausea, vomiting, and diarrhea. 23:12 Back: Negative for acute changes. 23:12 : Negative for urinary symptoms. 23:12 MS/extremity: Negative for acute changes. 23:12 Skin: Negative for rash. 23:12 Neuro: Positive for numbness, of the upper extremities, Negative for altered mental status, loss of consciousness. 23:12 Psych: Positive for anxiety, depression, Negative for suicidal ideation. Exam: 23:12 Head/Face: Normocephalic, atraumatic. Eyes: Pupils equal round and reactive to light, pkl extra-ocular motions intact. Lids and lashes normal. Conjunctiva and sclera are non-icteric and not injected. Cornea within normal limits. Periorbital areas with no swelling, redness, or edema. ENT: Nares patent. No nasal discharge, no septal abnormalities noted. Tympanic membranes are normal and external auditory canals are clear. Oropharynx with no redness, swelling, or masses, exudates, or evidence of obstruction, uvula midline. Mucous membranes moist. Neck: Trachea midline, no thyromegaly or masses palpated, and no cervical lymphadenopathy. Supple, full range of motion without nuchal rigidity, or vertebral point tenderness. No Meningismus. Chest/axilla: Normal chest wall appearance and motion. Nontender with no deformity. No lesions are appreciated. Cardiovascular: Regular rate and rhythm with a normal S1 and S2. No gallops, murmurs, or rubs. Normal PMI, no JVD. No pulse deficits. Respiratory: Lungs have equal breath sounds bilaterally, clear to auscultation and percussion. No rales, rhonchi or wheezes noted. No increased work of breathing, no retractions or nasal flaring. Abdomen/GI: Soft, non-tender, with normal bowel sounds. No distension or tympany. No guarding or rebound. No evidence of tenderness throughout. Back: No spinal tenderness. No costovertebral tenderness. Full range of motion. Skin: Warm, dry with normal turgor. Normal color with no rashes, no lesions, and no evidence of cellulitis. MS/ Extremity: Pulses equal, no cyanosis. Neurovascular intact. Full, normal range of motion. 23:12 Neuro: Orientation: is normal, Mentation: is normal, Cranial nerves: grossly normal, Motor: is normal, Sensation: numbness, that is mild, of the upper extremities. 23:12 Psych: Behavior/mood is anxious, Affect is calm, Patient has no thoughts/intents to harm self or others. Vital Signs: 22:05 BP 134 / 94; Pulse 89; Resp 16; Temp 98.2; Pulse Ox 100% on R/A; Weight 99.79 kg (R); ak1 Height 5 ft. 2 in. (157.48 cm) (R); Pain 6/10; 0603 00:00 BP 104 / 74; Pulse 83; Resp 18; Pulse Ox 100% ; rv 00:30 BP 101 / 78; Pulse 85; Resp 16; Pulse Ox 97% ; rv 01:00 BP 90 / 55; Pulse 85; Resp 18; Temp 98; Pulse Ox 96% ; rv 0602 22:05 Body Mass Index 40.24 (99.79 kg, 157.48 cm) ak1 12/24 22:05 pt reports headache. ak1 MDM: 22:32 Patient medically screened. pkl 12/25 00:50 Data reviewed: vital signs, nurses notes, lab test result(s), radiologic studies, plain pkl films. ED course: Patient feeling better. Advised to follow up with [facility] for further evaluations as outpatient this week. Patient and family understood instructions. 12/24 23:01 Order name: CBC with Diff pkl 12/24 23:01 Order name: Chem 7; Complete Time: 00:45 pkl 12/24 23:01 Order name: UA; Complete Time: 01:28 pkl 12/24 23:01 Order name: UDS; Complete Time: 00:45 pkl 12/24 23:01 Order name: D-Dimer; Complete Time: 00:45 pkl 12/24 23:02 Order name: CBC with Automated Diff; Complete Time: 00:45 EDMS 12/24 23:01 Order name: XRAY CXR (1 view) pkl 12/24 23:29 Order name: Urine Dipstick--Ancillary (enter results); Complete Time: 00:55 mw2 12/24 23:29 Order name: Urine --Ancillary (enter results); Complete Time: 00:55 mw2 12/25 00:21 Order name: Urine Microscopic Only; Complete Time: 01:28 EDMS 03 01:03 Order name: Urine Culture EDMS Administered Medications: 12/24 23:33 Not Given (Patient Refused): NS 0.9% 1000 ml IV at 125 ml/hr continuous ca1 23:33 Not Given (Patient Refused): Ativan 1 mg IVP once ca1 12/25 00:10 Drug: Ativan 1 mg Route: IVP; Site: right forearm; rv 01:07 Follow up: Response: No adverse reaction rv 00:10 Drug: NS 0.9% 1000 ml Route: IV; Rate: 125 ml/hr; Site: right forearm; rv 01:07 Follow up: IV Status: Completed infusion rv 00:32 CANCELLED (error): NS 0.45 % 1000 ml IV at 125 ml/hr continuous rv Disposition: 12/25/18 00:53 Discharged to Home. Impression: Anxiety disorder. - Condition is Stable. - Prescriptions for Ativan 1 mg Oral Tablet - take 1 tablet by ORAL route 2 times per day As needed; 20 tablet. - Medication Reconciliation Form, Thank You Letter, Antibiotic Education, Prescription Opioid Use form. - Follow up: Private Physician; When: 2 - 3 days; Reason: Re-evaluation by your physician. - Problem is new. - Symptoms have improved. Signatures: Dispatcher [employer] EDMS Jimmy Saxena MD MD pkl Ana Romero RN RN ak1 Masoud Corrigan RN RN rv Juanob, Lynn FUNES ca1 Corrections: (The following items were deleted from the chart) 00:32 00:26 NS 0.45 % 1000 ml IV at 125 ml/hr continuous ordered. rv rv 01:07 00:53 12/25/2018 00:53 Discharged to Home. Impression: Anxiety disorder. Condition is rv Stable. Forms are Medication Reconciliation Form, Thank You Letter, Antibiotic Education, Prescription Opioid Use. Follow up: Private Physician; When: 2 - 3 days; Reason: Re-evaluation by your physician. Problem is new. Symptoms have improved. pkl
[2018-12-25 01:01] LABS: Urine Bacteria <20 /HPF (<20); Urine Culture Reflex Order REFLEXED; Urine RBC <5 /HPF (NONE SEEN)
--- NOTE | 2018-12-25 08:35 | RAD REPORT ---
EXAM DESCRIPTION: RAD - Chest Single View - 12/24/2018 11:38 pm CLINICAL HISTORY: DYSPNEA Chest pain. COMPARISON: No comparisons FINDINGS: Portable technique limits examination quality. The lungs are grossly clear. The heart is normal in size. No displaced fractures. IMPRESSION: No acute intrathoracic process suspected.
== END 2018-12-25 01:07 | disposition home or self-care (01) ==
LOC: ER 21:55
DX: F41.9 Anxiety disorder, unspecified (principal); I10 Essential (primary) hypertension; F32.9 Major depressive disorder, single episode, unspecified
CPT/HCPCS: 36415; 71045; 80048; 80307; 81003; 81015; 81025; 85025; 85379; 87077; 87086; 87088; 87186; 96361; 96374; 99284